=== PATIENT | female | born 1940 | race Caucasian/White ===

== ENCOUNTER 2016-09-12 16:41 | Outpatient (CLI) | payer OTHER ==
[2014-11-30 14:15] VITALS: BMI 31.6
== END 2016-09-12 16:42 | disposition home or self-care (01) ==
LOC: LAB 16:41
PROVIDERS: ATTEND Nurse Practitioner Family
DX: J02.9 Acute pharyngitis, unspecified (principal); J40 Bronchitis, not specified as acute or chronic
CPT/HCPCS: 87651; 87880

== ENCOUNTER 2016-09-12 17:16 | Outpatient (CLI) | payer OTHER ==
[2014-11-30 14:15] VITALS: BMI 31.6
--- NOTE | 2016-09-13 07:52 | DI ---
EXAM: Two views of the chest. History: Cough and bronchitis. Comparison: Chest radiograph 11/30 2014 Findings: Heart size is within normal limits. Left lower lung nodular opacity. No pleural fluid a nd no pneumothorax. Atherosclerotic vascular calcifications. Right shoulder arthroplasty hardware. Degenerative changes of the spine. Impression: Left lower lung nodular opacity could represent pneumonia or developing lung nodule. R ecommend further evaluation with contrast enhanced chest CT.
== END 2016-09-12 17:17 | disposition home or self-care (01) ==
LOC: RAD 17:16
PROVIDERS: ATTEND Nurse Practitioner Family
DX: J40 Bronchitis, not specified as acute or chronic (principal)

== ENCOUNTER 2016-11-06 19:31 | Emergency (ER) | payer OTHER ==
[2016-11-06 19:39] VITALS: BP 139/73; TEMP 97.9; BMI 28.8
--- NOTE | 2016-11-06 19:48 | ED.PDOC ---
General ED Provider: Dr. CLARISSA YING-ER Chief Complaint: Non-specific Complaint Stated Complaint: my shoulder is red and swollen---im on antbx and its swollen Time Seen by Physician: 19:35 Mode of Arrival: Walk-In Information Source: Patient, Family Exam Limitations: No limitations Primary Care Provider: CLARISSA YING Nursing and Triage Documentation Reviewed and Agree: Yes Musculoskeletal Complaint Exam - Shoulder Pain Complaint/Exam Mechanism of Injury: Reports: No known trauma Onset/Duration: several days Symptoms Are: Still present Timing: Constant Initial Severity: Mild Current Severity: Mild Location: Reports: Discrete (right arm) Character: Reports: Dull, Aching Alleviating: Reports: None Aggravating: Reports: Movement, Lifting, Flexion, Extension, Internal rotation, External rotation Associated Signs and Symptoms: Reports: Swelling, Redness, Fever. Denies: Bruising, Weakness, Numbness, Tingling Related History: Reports: Similar episode Non-Orthopedic Risk Factors: Reports: None Septic Arthritis Risk Factors: Reports: None Related Surgical History: Reports: None Shoulder Findings: Present: Swelling Tenderness: Present: Proximal humerus Limited Range of Motion: Present: Abduction, Adduction, Flexion, Extension, Internal rotation, Rotator cuff muscles Differential Diagnoses: Other Review of Systems - Review Of Systems Constitutional: Reports: No symptoms Eyes: Reports: No symptoms Ears, Nose, Mouth, Throat: Reports: No symptoms Respiratory: Reports: No symptoms Cardiac: Reports: No symptoms GI: Reports: No symptoms : Reports: No symptoms Musculoskeletal: Reports: Joint pain, Joint swelling Skin: Reports: No symptoms Neurological: Reports: No symptoms Endocrine: Reports: No symptoms Hematologic/Lymphatic: Reports: No symptoms All Other Systems: Reviewed and Negative Past Medical History - Past Medical History Previously Healthy: No Endocrine: Reports: Hypothyroid, Dyslipidemia Cardiovascular: Reports: Hypertension Respiratory: Reports: None Hematological: Reports: None Gastrointestinal: Reports: None Genitourinary: Reports: None Neuro/Psych: Reports: None Musculoskeletal: Reports: Arthritis Cancer: Reports: None Last Menstrual Period: many years - Surgical History General Surgical History: Reports: Unknown - Family History Family History: Reports: Unknown - Social History Smoking Status: Former smoker Hx Substance Use: No Alcohol Screening: None Lives: With family - Immunizations Tetanus Shot up to Date: Yes Physical Exam - Physical Exam Appearance: Well-appearing, No pain distress, Well-nourished Pain Distress: Mild Eyes: JONATHAN, EOMI, Conjunctiva clear ENT: Ears normal, Nose normal, Oropharynx normal Neck: Supple Respiratory: Airway patent, Breath sounds clear, Breath sounds equal, Respirations nonlabored Cardiovascular: RRR, Pulses normal, No rub, No murmur GI/: Soft Musculoskeletal: Limited ROM, Limited strength Skin: Warm, Dry, Normal color Neurological: Sensation intact, Motor intact, Reflexes intact, Cranial nerves intact, Alert, Oriented Psychiatric: Affect appropriate Critical Care Note - Critical Care Note Total Time (mins): 0 Course - Course Vital Signs: Temp Pulse Resp BP Pulse Ox 11/06/16 19:32 97.9 F 67 18 139/73 93 L Departure - Departure Time of Disposition: 19:48 Disposition: TSF SHORT-TRM HOSP Discharge Problem: Acute shoulder pain Qualifiers: Laterality: right Qualifier Code: (M25.511) Pain in right shoulder Instructions: Swollen Joint (ED) Condition: Good Pt referred to PMD for follow-up: Yes Allergies/Adverse Reactions: Allergies ibuprofen Adverse Reaction (Verified 11/06/16 19:39) meperidine HCl [From Demerol] Adverse Reaction (Verified 11/06/16 19:38) Home Medications: Ambulatory Orders Aspirin [Aspirin Chewable] 81 mg PO DAILYWM 11/30/14 Clopidogrel Bisulfate [Plavix] 75 mg PO DAILY 11/30/14 Diclofenac Potassium 50 mg PO BID 11/30/14 Duloxetine HCl [Cymbalta] 60 mg PO DAILY 11/30/14 Levothyroxine Sodium [Synthroid] 50 mcg PO QDAC 11/30/14 Lisinopril 10 mg PO DAILY 11/30/14 Lovastatin 10 mg PO DAILY 11/30/14 Metoprolol Succinate [Toprol Xl] 50 mg PO DAILY 11/30/14 [place]-3S/Dha/Epa/Fish Oil [[place]-3 Fish Oil 1,000 mg Sfgl] 3 each PO DAILY 11/30 Pantoprazole Sodium 40 mg PO DAILY 11/30/14 Hydrocodone/Acetaminophen [[place] 7.5-325 Tablet] 1 each PO QID 09/12/16 Transfer Form Completed: Yes Disposition Discussed With: Patient, Family
== END 2016-11-06 20:13 | disposition short-term general hospital (02) ==
LOC: ED 19:31
DX: M25.511 Pain in right shoulder (principal); M25.411 Effusion, right shoulder
CPT/HCPCS: 99285

== ENCOUNTER 2016-12-24 23:17 | Outpatient (CLI) | END 2016-12-24 23:18 | disposition short-term general hospital (02) | LOC: AMBL 23:17 | PROVIDERS: ATTEND Family Medicine | DX: R44.1 Visual hallucinations (principal); Z90.2 Acquired absence of lung [part of]; Z98.890 Other specified postprocedural states ==

== ENCOUNTER 2016-12-25 15:36 | Outpatient (CLI) | payer OTHER ==
[2016-12-25 15:42] LABS: BILIRUBIN,URINE Negative (NEGATIVE); KETONES,URINE Negative (NEGATIVE); LEUKOCYTE ESTERASE ,URINE Negative (NEGATIVE); NITRITE,URINE Negative (NEGATIVE); PROTEIN,URINE Negative (NEGATIVE); URINE, BLOOD Negative (NEGATIVE)
[2016-12-25 15:56] LABS: ADD URINE MICROSCOPIC NO
== END 2016-12-25 15:37 | disposition home or self-care (01) ==
LOC: NONPT 15:36
PROVIDERS: ATTEND Family Medicine
DX: R50.9 Fever, unspecified (principal)
CPT/HCPCS: 81001

== ENCOUNTER 2017-01-25 14:58 | Outpatient (CLI) ==
--- NOTE | 2017-01-25 15:42 | US ---
EXAM: Left lower extremity venous doppler. HISTORY: Left leg pain/tenderness. COMPARISON: None available. TECHNIQUE: Multiple grayscale and color doppler images were obtained. FINDINGS: There is normal flow, compressibility and augmentation of flow within the left common femo ral, greater saphenous, profunda, femoral, popliteal, posterior tibial, and peroneal veins. The left anterior tibial vein is not identified. Focal ovoid hyperechoic structure in the left calf in the ar ea of pain measures approximately 1.4 x 1.1 x 1.4 cm without internal vascularity. This could be a f ocal contusion or lipoma, based on clinical presentation. IMPRESSION: No evidence for left lower extremity deep vein thrombosis at the levels examined.
== END 2017-01-25 14:59 | disposition home or self-care (01) ==
LOC: RAD 14:58
PROVIDERS: ATTEND Family Medicine
DX: M79.605 Pain in left leg (principal)

== ENCOUNTER 2017-12-23 18:22 | Outpatient (CLI) | END 2017-12-23 18:39 | LOC: AMBL 18:22 | PROVIDERS: ATTEND Family Medicine | DX: I26.99 Other pulmonary embolism without acute cor pulmonale (principal); C34.90 Malignant neoplasm of unspecified part of unspecified bronchus or lung ==

== ENCOUNTER 2017-12-24 01:45 | Outpatient (CLI) | END 2017-12-24 01:46 | disposition home or self-care (01) | LOC: AMBL 01:45 | PROVIDERS: ATTEND Family Medicine | DX: R42 Dizziness and giddiness (principal); S51.011A Laceration without foreign body of right elbow, initial encounter; S61.212A Laceration without foreign body of right middle finger without damage to nail, initial encounter; S01.511A Laceration without foreign body of lip, initial encounter; S60.021A Contusion of right index finger without damage to nail, initial encounter; S00.83XA Contusion of other part of head, initial encounter; W19.XXXA Unspecified fall, initial encounter ==